=== PATIENT | female | born 1945 | race Caucasian/White ===

== ENCOUNTER 2018-10-25 01:42 | Observation (INO) | payer OTHER, MEDICAID ==
[~2018-10-25] VITALS: Ht 165.1 cm; Wt 68.5 kg
[2018-10-25 01:55] VITALS: BP 99/47
[2018-10-25] MEDS ORDERED: ASPIR 8181 MG PO (01:59)
[2018-10-25] MEDS ORDERED: HYDROCHLOROTHIA25 M2 PO (01:59)
[2018-10-25] MEDS ORDERED: LISINOPRIL20 MG PO (01:59)
[2018-10-25] MEDS ORDERED: METOPROLOL SUCC25 M1 PO (02:00)
[2018-10-25] MEDS ORDERED: METFORMIN HCL500 MG PO (02:01)
[2018-10-25] MEDS ORDERED: DILTIAZEM ER90 M1 PO (02:01)
[2018-10-25] MEDS ORDERED: OMEPRAZOLE20 M2 PO (02:01)
[2018-10-25] MEDS ORDERED: SYNTHROID75 MCG PO (02:02)
[2018-10-25] MEDS ORDERED: VITAMIN D3400 UNIT PO (02:02)
[2018-10-25] MEDS ORDERED: VITAMIN C500 MG PO (02:02)
[2018-10-25] MEDS ORDERED: VITAMIN E400 UNI2 PO (02:03)
[2018-10-25] MEDS ORDERED: FOLIC ACID1 MG PO (02:03)
[2018-10-25 02:22] LABS: ABSOLUTE BASOPHILS 0.1 thou/uL (0.0-0.2); ABSOLUTE EOSINOPHILS 0.1 thou/uL (0.0-0.7); ABSOLUTE LYMPHOCYTES 2.5 thou/uL (0.8-5.3); ABSOLUTE MONOCYTES 0.9 thou/uL (0.0-1.2); ABSOLUTE NEUTROPHILS 6.6 thou/uL (1.6-8.1); BASOPHILS 0.9 %; EOSINOPHILS 1.2 %; HEMATOCRIT 31.8 % (37.0-47.0); HEMOGLOBIN 10.8 gm/dL (12.0-15.0); LYMPHOCYTES 24.3 %; MCH 27.5 pg (26.0-34.0); MCV 80.8 fL (80.0-100.0); MONOCYTES 9.1 %; MPV 8.3 fl. (7.2-11.1); NUCLEATED RBCS 0 /100WBC; PLATELET COUNT* 378 thou/uL (150-400); POLYS 64.5 %; RBC 3.94 mil/uL (4.20-5.00); RDW-CV 15.9 % (10.5-14.5); WBC 10.3 thou/uL (4.0-11.0)
[2018-10-25 02:25] LABS: ANION GAP 11 mmol/L (7-16); BUN 19 mg/dL (7-18); CALCIUM 8.9 mg/dL (8.5-10.1); CHLORIDE 91 mmol/L (98-107); CO2 25 mmol/L (21-32); CREATININE 1.1 mg/dL (0.6-1.3); GLUCOSE 161 mg/dL (70-99); POTASSIUM 3.2 mmol/L (3.5-5.1); SODIUM 127 mmol/L (136-145)
[2018-10-25 02:33] LABS: PROTIME 10.5 Seconds (9.20-11.50)
[2018-10-25 02:36] LABS: ALBUMIN 3.3 g/dL (3.4-5.0); ALKALINE PHOSPHATASE 101 U/L (46-116); NT-PRO BRAIN NAT PEPTIDE 723 pg/mL (<300); SGOT 14 U/L (15-37); SGPT 24 U/L (30-65); TOTAL BILIRUBIN 0.3 mg/dL (<0.1-1.0); TROPONIN-I LEVEL <0.06 ng/mL (<0.06)
[2018-10-25 04:10] LABS: URINE BILIRUBIN NEGATIVE (Negative); URINE BLOOD NEGATIVE (Negative); URINE CLARITY CLEAR; URINE COLOR YELLOW; URINE GLUCOSE-RANDOM NEGATIVE (Negative); URINE KETONES NEGATIVE (Negative); URINE NITRITE-REFLEX NEGATIVE (Negative); URINE PROTEIN NEGATIVE (Negative); URINE SPECIFIC GRAVITY <= 1.005 (1.005-1.030); URINE UROBILINOGEN 0.2 E.U./dl (0.2-1.0)
[2018-10-25 04:12] LABS: URINE LEUKOCYTES-REFLEX 2+ (Negative)
[2018-10-25 05:28] LABS: HYALINE CASTS 0-3 Few /LPF (None Seen); MUCUS 0-3 Light strn/LPF (None Seen); SQUAMOUS >10 Many /LPF (0-3)
[2018-10-25 05:29] LABS: BACTERIA-REFLEX 1-9 Few /HPF (None Seen); CRYSTALS None Seen /LPF (None Seen); URINE RBC 0-2 Rare /HPF (0-2); URINE WBC-REFLEX 6-15 Few /HPF (0-5)
[2018-10-25 09:01] VITALS: BP 107/59
--- NOTE | 2018-10-25 09:03 | NUR ---
PT SITTING UP IN BED, GIVEN BREAKFAST TRAY. PT DENIES PAIN AND HAS NO C/O AT THIS TIME. WILL CONTINUE TO MONITOR.
--- NOTE | 2018-10-25 10:48 | NUR ---
LUNCH TRAY ORDERED FOR PT
--- NOTE | 2018-10-25 11:08 | NUR ---
CARDIOLOGY NURSE IS CONSULTING WITH PT IN ED AT THIS TIME.
--- NOTE | 2018-10-25 12:34 | NUR ---
LUNCH TRAY PROVIDED, PT RESTING IN BED COMFORTABLY WATCHING TV
--- NOTE | 2018-10-25 12:55 | EKG ---
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 10/25/18 [id number] Des Quiroz MD, FAC /EPI
[2018-10-25 13:08] VITALS: BP 134/57
--- NOTE | 2018-10-25 13:20 | NUR ---
PT'S DAUGHTER CALLED, WANTS UPDATES IF POSSIBLE, PHONE # [phone]
[2018-10-25 14:17] LABS: CALCIUM 8.6 mg/dL (8.5-10.1); CREATININE 0.7 mg/dL (0.6-1.3); MAGNESIUM 1.2 mg/dL (1.8-2.4); POTASSIUM 3.5 mmol/L (3.5-5.1)
[2018-10-25 15:45] VITALS: BP 135/72
[2018-10-25 17:01] VITALS: BP 122/64
[2018-10-25] MEDS ORDERED: SIMVASTATIN5 MG PO (17:38)
--- NOTE | 2018-10-25 18:24 | NUR ---
PT ADMITTED TO TELEMETRY ROOM 226 WITH AN ADMITTING DIAGNOSIS OF HYPONATREMIA, UTI, NEAR SYNCOPE. PT DENIES N/V/D, PAIN, CP, SOA, OR DIZZINESS. VSS. TRACING SR WITH BBB. SEE COMPUTER CHARTING FOR ASSESSMENT DETAILS. HOURLY ROUNDING IN PLACE FOR PT SAFETY. CLWR
[2018-10-25 20:00] VITALS: BP 152/77
[2018-10-26] VITALS: BP 170/93
[2018-10-26 04:00] VITALS: BP 154/85
--- NOTE | 2018-10-26 06:41 | NUR ---
PATIENT AWAKE FIRST HALF OF THE NIGHT WATCHING TV. PT DENIES PAIN/NAUSEA. PT UP TO BATHROOM WITH STANDBY ASSIST. DAUGHTER AND GR.SON VISITED AROUND MIDNIGHT, BROUGHT HER FOOD. PT THEN SLEPT WELL. BLOOD PRESSURE AT MIDNIGHT INCREASED TO 170/93 BUT CAME DOWN TO 154/85 AT 0400. PT DENIES HEADACHE. PT WITH SALINE LOCK IN RT AC, PATENT. 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 MG AND POTASSIUM LOW AND WERE REPLACED. WILL CONTINUE TO MONITOR.
[2018-10-26 07:00] VITALS: BP 166/89
--- NOTE | 2018-10-26 08:01 | NUR ---
INITAL ASSESSMENT COMPLETED CHARTED. TRACING SR ON MONITOR. VSS. PT DENIES PAIN, CP, SOA, N/V/D, DIZZINESS. PT UP SBA WITH STEADY GAIT. PT DENIES ANY FURTHER NEEDS AT THSI TIME. HOURLY ROUNDING IN PLACE FOR PT SAFETY. CLWR.
[2018-10-26 08:07] LABS: CALCIUM 8.7 mg/dL (8.5-10.1); CREATININE 0.7 mg/dL (0.6-1.3); MAGNESIUM 1.3 mg/dL (1.8-2.4); POTASSIUM 4.2 mmol/L (3.5-5.1)
[2018-10-26 11:14] VITALS: BP 166/89
[2018-10-26 12:12] VITALS: BP 132/49
== END 2018-10-26 16:25 | disposition home or self-care (01) ==
LOC: M.ERS 01:42 → M.TBA-ER 04:33 → M.ERS 04:33 → M.TBA-ER 13:29 → M.2W 17:21
PROVIDERS: Family Medicine; Personal Emergency Response Attendant; ADMIT Internal Medicine
DX: E87.1 Hypo-osmolality and hyponatremia (principal); R55 Syncope and collapse; I10 Essential (primary) hypertension; E11.9 Type 2 diabetes mellitus without complications; E03.9 Hypothyroidism, unspecified; R79.89 Other specified abnormal findings of blood chemistry; Z95.1 Presence of aortocoronary bypass graft; Z87.891 Personal history of nicotine dependence; Z79.82 Long term (current) use of aspirin; Z79.84 Long term (current) use of oral hypoglycemic drugs; Z79.890 Hormone replacement therapy; Z79.899 Other long term (current) drug therapy